=== PATIENT | male | born 1960 | race Caucasian/White ===

== ENCOUNTER 2020-11-03 19:59 | Inpatient (IN) ==
[2020-11-03] MEDS ORDERED: Isovue-370 500 ML BOTTLE IVP ONE (20:19)
[2020-11-03 20:30] LABS: Basophils # 0.1 K/mcL (0.0-0.2); Basophils % 0.7 %; Eosinophils # 0.1 K/mcL (0.0-0.6); Eosinophils % 1.7 %; Hematocrit 18.7 % (37.5-50.1); Hemoglobin 6.6 g/dL (12.9-16.9); Immature Granulocytes % 0.6 % (0-4); Lymphocytes # 1.5 K/mcL (0.6-4.6); Mean Corpuscular HGB Conc 35.3 g/dL (31.6-35.5); Mean Corpuscular Hemoglobin 33.5 pg (28.0-33.3); Mean Corpuscular Volume 94.9 fL (83.0-100.0); Mean Platelet Volume 9.1 fL (9.4-12.4); Monocytes # 0.7 K/mcL (0.0-1.3); Monocytes % 9.7 %; Neutrophils # 4.6 K/mcL (1.6-8.9); Platelet Count 225 K/mcL (140-400); Red Blood Count 1.97 M/mcL (4.19-5.50); Red Cell Distribution Width 12.5 % (11.5-14.5); Segmented Neutrophils % 66.3 %
[2020-11-03] MEDS ORDERED: *HR* Ticagrelor 90 MG TABLET ONE (20:43)
[2020-11-03] MEDS ORDERED: 0.9 % Sodium Chloride 1,000 ML ONE (20:43)
[2020-11-03] MEDS ORDERED: Aspirin 81 MG TAB.CHEW ONE (20:43)
[2020-11-03] MEDS ORDERED: *HR* Heparin 5,000 UNIT/ML VIAL ONE (20:43)
[2020-11-03 20:53] LABS: Alanine Aminotransferase 13 Units/L (7-52); Albumin 3.5 g/dL (3.5-5.7); Albumin/Globulin Ratio 1.7 (1.1-2.2); Alkaline Phosphatase 57 Units/L (34-104); Aspartate Amino Transferase 19 Units/L (13-39); BUN/Creatinine Ratio 34 (6-26); Bilirubin,Direct 0.1 mg/dL (0.0-0.2); Bilirubin,Indirect 0.2 mg/dL (0.0-1.0); Bilirubin,Total 0.3 mg/dL (0.3-1.0); Blood Urea Nitrogen 31 mg/dL (6-20); Calcium 8.5 mg/dL (8.6-10.3); Carbon Dioxide 23 mEq/L (23-29); Chloride 91 mEq/L (98-107); Globulin 2.1 g/dL (2.4-3.5); Glucose 108 mg/dL (70-105); Lipase 24 Units/L (11-82); Osmolality,Calculated 265 (280-300); Potassium 3.6 mEq/L (3.5-5.1); Sodium 124 mEq/L (136-145); Total Protein 5.6 g/dL (6.4-8.9); Troponin I < 0.03 ng/mL (< 0.04); eGFR For African Americans > 60 (> 60); eGFR For Non-African Americans > 60 (> 60)
[2020-11-03] MEDS ORDERED: Pantoprazole 40 MG VIAL IVP STA (21:03)
[2020-11-03] MEDS ORDERED: 0.9 % Sodium Chloride 250 ML ONE (21:05)
[2020-11-03] MEDS ORDERED: Nitroglycerin 1,000 MCG/5 ML VIAL IV ONE (21:12)
[2020-11-03] MEDS ORDERED: *HR* Heparin 10,000 UNIT/10 ML VIAL ONE (21:12)
[2020-11-03] MEDS ORDERED: 0.9 % Sodium Chloride 2,000 ML ONE (21:12)
[2020-11-03] MEDS ORDERED: ISOVUE-370 200 ML INFUS..BTL ONE (21:12)
[2020-11-03] MEDS ORDERED: Heparin 1,000 UNITS/500 mL 0 ML ONE (21:12)
[2020-11-03] MEDS: Pantoprazole 40 MG in 0.9 % Sodium Chloride Mini Bag 100 ML IVC SCH (21:14)
[2020-11-03] MEDS ORDERED: *HR* FentaNYL (PF) 100 MCG/2 ML VIAL IVP ONE ×2 (21:18→22:30)
[2020-11-03 21:59] LABS: INR 1.1; Prothrombin Time 12.2 Seconds (9.4-12.1)
[2020-11-03 22:02] LABS: Activated Partial Thrombo Time 28.4 Seconds (26.0-36.0)
[2020-11-03] MEDS ORDERED: Naloxone 0.4 MG/ML INJ IVP PRN (22:56)
[2020-11-03] MEDS ORDERED: Ondansetron 4 MG/2 ML VIAL IVP PRN (22:56)
[2020-11-03] MEDS ORDERED: Acetaminophen 325 MG TABLET PO PRN (22:56)
[2020-11-03] MEDS ORDERED: Perflutren Lipid Microsphere 1.3 ML in 0.9 % Sodium Chloride 8.7 ML IVP PRN (22:59)
[2020-11-03] MEDS ORDERED: *HR* LORazepam 2 MG/ML VIAL IVP PRN ×3 (23:59)
[2020-11-04] MEDS: Thiamine (B-1) 100 MG, Folic Acid 1 MG, MVI, adult with vitamin K 10 ML in 0.9 % Sodi... IVPB SCH ×2 (01:02→18:02)
[2020-11-04] MEDS: Pantoprazole 40 MG in 0.9 % Sodium Chloride Mini Bag 100 ML IVC SCH ×5 (01:03→22:15)
[2020-11-04 02:24] LABS: Bilirubin,Urine Negative (Negative); Blood,Urine Negative (Negative); Clarity,Urine Clear (Clear); Color,Urine Colorless (Yellow); Glucose,Urine (UA) Normal (Normal); Ketones,Urine Negative (Negative); Leukocyte Esterase,Urine Negative (Negative); Nitrite,Urine Negative (Negative); PH,Urine 6.5 pH Units (5.0-8.0); Protein,Urine Negative (Neg-Trace); Urobilinogen,Urine Normal (Normal)
[2020-11-04 02:34] LABS: Amphetamine Screen,Urine Negative ng/mL (Cutoff=1000); Barbiturate Screen,Urine Negative ng/mL (Cutoff=200); Benzodiazepines Screen,Urine Negative ng/mL (Cutoff=200); Cannabinoid Screen,Urine Negative ng/mL (Cutoff = 50); Cocaine Screen,Urine Negative ng/mL (Cutoff= 300); Opiate Screen,Urine Negative ng/mL (Cutoff=300); Phencyclidine Screen,Urine Negative ng/mL (Cutoff=25)
[2020-11-04 03:58] LABS: Prothrombin Time 11.8 Seconds (9.4-12.1)
[2020-11-04 04:05] LABS: Basophils # 0.1 K/mcL (0.0-0.2); Eosinophils # 0.1 K/mcL (0.0-0.6); Eosinophils % 2.1 %; Hematocrit 27.1 % (37.5-50.1); Immature Granulocytes % 0.8 % (0-4); Lymphocytes # 1.1 K/mcL (0.6-4.6); Lymphocytes % 18.5 %; Mean Corpuscular HGB Conc 34.7 g/dL (31.6-35.5); Mean Corpuscular Hemoglobin 32.8 pg (28.0-33.3); Mean Corpuscular Volume 94.4 fL (83.0-100.0); Mean Platelet Volume 9.3 fL (9.4-12.4); Monocytes # 0.7 K/mcL (0.0-1.3); Monocytes % 11.4 %; Neutrophils # 4.1 K/mcL (1.6-8.9); Platelet Count 189 K/mcL (140-400); Red Blood Count 2.87 M/mcL (4.19-5.50); Red Cell Distribution Width 13.9 % (11.5-14.5); Segmented Neutrophils % 66.2 %; White Blood Count 6.2 K/mcL (4.3-11.1)
[2020-11-04 04:07] LABS: Alanine Aminotransferase 13 Units/L (7-52); Albumin 3.4 g/dL (3.5-5.7); Albumin/Globulin Ratio 1.7 (1.1-2.2); Alkaline Phosphatase 60 Units/L (34-104); Aspartate Amino Transferase 20 Units/L (13-39); BUN/Creatinine Ratio 32 (6-26); Bilirubin,Total 0.8 mg/dL (0.3-1.0); Blood Urea Nitrogen 24 mg/dL (6-20); Carbon Dioxide 23 mEq/L (23-29); Chloride 97 mEq/L (98-107); Chol/HDL Ratio 2.3 (0-4.9); Cholesterol 103 mg/dL (< 200); Glucose 92 mg/dL (70-105); HDL Cholesterol 45 mg/dL (40-59); Hemoglobin 9.4 g/dL (12.9-16.9); LDL Cholesterol,Calculated 41 mg/dL (< 100); Magnesium 1.7 mg/dL (1.6-2.6); Osmolality,Calculated 264 (280-300); Phosphorous 3.4 mg/dL (2.7-4.5); Potassium 4.3 mEq/L (3.5-5.1); Sodium 125 mEq/L (136-145); Total Protein 5.4 g/dL (6.4-8.9); Triglycerides 84 mg/dL (< 150); eGFR For African Americans > 60 (> 60); eGFR For Non-African Americans > 60 (> 60)
[2020-11-04 04:09] LABS: Troponin I 0.21 ng/mL (< 0.04)
[2020-11-04] MEDS ORDERED: Pantoprazole 40 MG VIAL IVP SCH (06:00)
[2020-11-04 14:41] LABS: Hematocrit 28.6 % (37.5-50.1); Hemoglobin 9.9 g/dL (12.9-16.9)
[2020-11-04] MEDS ORDERED: Lidocaine -MPF 2% 2 ML VIAL ONE (16:46)
[2020-11-04] MEDS ORDERED: *HR* Propofol 200 MG/20 ML VIAL IVP ONE (16:46)
[2020-11-04] MEDS ORDERED: *HR* LORazepam 2 MG/ML VIAL IVP PRN ×2 (18:20)
[2020-11-04] MEDS ORDERED: Naloxone 0.4 MG/ML INJ IVP PRN (18:20)
[2020-11-04] MEDS ORDERED: Acetaminophen 325 MG TABLET PO PRN (18:20)
[2020-11-04] MEDS ORDERED: Ondansetron 4 MG/2 ML VIAL IVP PRN (18:20)
[2020-11-04 19:40] LABS: Hematocrit 28.3 % (37.5-50.1); Hemoglobin 9.8 g/dL (12.9-16.9)
[2020-11-04] MEDS: Budesonide/Formoterol 80/4.5 1 PUFF INH IH SCH (20:05)
[2020-11-05 01:16] LABS: Basophils # 0.1 K/mcL (0.0-0.2); Basophils % 1.1 %; Eosinophils # 0.3 K/mcL (0.0-0.6); Eosinophils % 4.9 %; Hematocrit 29.3 % (37.5-50.1); Hemoglobin 10.2 g/dL (12.9-16.9); Immature Granulocytes % 0.5 % (0-4); Lymphocytes % 15.5 %; Mean Corpuscular HGB Conc 34.8 g/dL (31.6-35.5); Mean Corpuscular Hemoglobin 32.8 pg (28.0-33.3); Mean Corpuscular Volume 94.2 fL (83.0-100.0); Mean Platelet Volume 9.1 fL (9.4-12.4); Monocytes # 0.7 K/mcL (0.0-1.3); Monocytes % 10.4 %; Neutrophils # 4.3 K/mcL (1.6-8.9); Platelet Count 234 K/mcL (140-400); Red Blood Count 3.11 M/mcL (4.19-5.50); Red Cell Distribution Width 14.4 % (11.5-14.5); Segmented Neutrophils % 67.6 %; White Blood Count 6.4 K/mcL (4.3-11.1)
[2020-11-05 01:29] LABS: VBG Ionized Calcium 1.12 mmol/L (1.15-1.35)
[2020-11-05 01:37] LABS: Alanine Aminotransferase 15 Units/L (7-52); Albumin 3.6 g/dL (3.5-5.7); Albumin/Globulin Ratio 1.5 (1.1-2.2); Alkaline Phosphatase 57 Units/L (34-104); Aspartate Amino Transferase 27 Units/L (13-39); BUN/Creatinine Ratio 18 (6-26); Bilirubin,Direct 0.1 mg/dL (0.0-0.2); Bilirubin,Indirect 0.4 mg/dL (0.0-1.0); Bilirubin,Total 0.5 mg/dL (0.3-1.0); Blood Urea Nitrogen 12 mg/dL (6-20); Calcium 8.6 mg/dL (8.6-10.3); Carbon Dioxide 22 mEq/L (23-29); Chloride 101 mEq/L (98-107); Globulin 2.4 g/dL (2.4-3.5); Glucose 82 mg/dL (70-105); Magnesium 1.8 mg/dL (1.6-2.6); Osmolality,Calculated 267 (280-300); Potassium 4.5 mEq/L (3.5-5.1); Sodium 129 mEq/L (136-145); eGFR For African Americans > 60 (> 60); eGFR For Non-African Americans > 60 (> 60)
[2020-11-05] MEDS: Pantoprazole 40 MG in 0.9 % Sodium Chloride Mini Bag 100 ML IVC SCH (04:45)
[2020-11-05 07:17] LABS: Hematocrit 30.3 % (37.5-50.1); Hemoglobin 10.2 g/dL (12.9-16.9)
[2020-11-05] MEDS: Budesonide/Formoterol 80/4.5 1 PUFF INH IH SCH ×2 (07:35→19:41)
[2020-11-05] MEDS: *HR* LORazepam 2 MG/ML VIAL IVP PRN ×2 (11:23→19:36)
[2020-11-05] MEDS ORDERED: Aspirin 81 MG TAB.CHEW PO SCH (11:45)
[2020-11-05] MEDS: Aspirin Enteric Coated 81 MG Tablet PO SCH ×2 (12:43→12:54)
[2020-11-05 13:14] LABS: Hematocrit 27.7 % (37.5-50.1); Hemoglobin 9.6 g/dL (12.9-16.9)
[2020-11-05] MEDS ORDERED: Thiamine (B-1) 100 MG, Folic Acid 1 MG, MVI, adult with vitamin K 10 ML in 0.9 % Sodi... IVPB SCH (18:00)
[2020-11-05 19:14] LABS: Hematocrit 27.3 % (37.5-50.1); Hemoglobin 9.5 g/dL (12.9-16.9)
[2020-11-06] MEDS: *HR* LORazepam 2 MG/ML VIAL IVP PRN (02:13)
[2020-11-06 02:23] LABS: Hematocrit 28.4 % (37.5-50.1); Hemoglobin 9.7 g/dL (12.9-16.9); Mean Corpuscular HGB Conc 34.2 g/dL (31.6-35.5); Mean Corpuscular Hemoglobin 32.8 pg (28.0-33.3); Mean Corpuscular Volume 95.9 fL (83.0-100.0); Mean Platelet Volume 9.3 fL (9.4-12.4); Platelet Count 236 K/mcL (140-400); Red Blood Count 2.96 M/mcL (4.19-5.50); Red Cell Distribution Width 14.7 % (11.5-14.5); White Blood Count 6.1 K/mcL (4.3-11.1)
[2020-11-06 02:44] LABS: BUN/Creatinine Ratio 12 (6-26); Blood Urea Nitrogen 8 mg/dL (6-20); Calcium 8.5 mg/dL (8.6-10.3); Carbon Dioxide 25 mEq/L (23-29); Chloride 100 mEq/L (98-107); Glucose 89 mg/dL (70-105); Osmolality,Calculated 266 (280-300); Potassium 4.4 mEq/L (3.5-5.1); Sodium 129 mEq/L (136-145); eGFR For African Americans > 60 (> 60); eGFR For Non-African Americans > 60 (> 60)
[2020-11-06 02:53] LABS: Troponin I 0.26 ng/mL (< 0.04)
[2020-11-06 07:32] VITALS: BP 165/86
[2020-11-06] MEDS: Aspirin Enteric Coated 81 MG Tablet PO SCH (08:17)
[2020-11-06 09:00] LABS: Hematocrit 29.4 % (37.5-50.1); Hemoglobin 10.1 g/dL (12.9-16.9)
[2020-11-06] MEDS ORDERED: hydroCHLOROthiazide 25 MG TABLET PO SCH (09:00)
[2020-11-06] MEDS ORDERED: Isosorbide MONOnitrate (24 HR) 30 MG TAB.ER.24H PO SCH (09:00)
[2020-11-06] MEDS: Budesonide/Formoterol 80/4.5 1 PUFF INH IH SCH (10:37)
== END 2020-11-06 13:56 | disposition home or self-care (01) | DRG 377 ==
LOC: EMEROOARM 19:59 → ICNU 19:59 → OBSVTOIN 22:02 → SUATTDRO 22:02 → ICNU 23:10 → 2ANU 11-04 22:32
PROVIDERS: ADMIT Student in an Organized Health Care Education/Training Program; ATTEND General Practice
PROC: ENDOEBX (2020-11-04 16:00)

== ENCOUNTER 2021-05-11 14:45 | Observation (INO) ==
[2021-05-11] MEDS ORDERED: 0.9 % Sodium Chloride 1,000 ML ONE ×2 (14:48→14:53)
[2021-05-11] MEDS ORDERED: *HR* Ticagrelor 90 MG TABLET ONE (14:53)
[2021-05-11] MEDS ORDERED: *HR* Heparin 5,000 UNIT/ML VIAL ONE (14:53)
[2021-05-11] MEDS ORDERED: *HR* Ticagrelor 90 MG TABLET PO ONE (14:54)
[2021-05-11] MEDS ORDERED: *HR* Heparin 5,000 UNIT/ML VIAL IVP ONE ×2 (14:55→17:48)
[2021-05-11] MEDS ORDERED: 0.9 % Sodium Chloride 500 ML IVC ONE (14:59)
[2021-05-11] MEDS ORDERED: *HR* Labetalol 20 MG/4 ML SYRINGE IVP ONE (15:05)
[2021-05-11] MEDS ORDERED: Isovue-370 500 ML BOTTLE IVP ONE (15:14)
[2021-05-11] MEDS ORDERED: Levalbuterol Neb 1.25 MG/3 ML AER ONE (15:15)
[2021-05-11] MEDS ORDERED: Furosemide 40 MG/4 ML VIAL IVP ONE (15:15)
[2021-05-11 15:18] LABS: Basophils # 0.1 K/mcL (0.0-0.2); Basophils % 0.9 %; Eosinophils # 0.1 K/mcL (0.0-0.6); Hematocrit 38.9 % (37.5-50.1); Hemoglobin 13.5 g/dL (12.9-16.9); Immature Granulocytes % 0.3 % (0-4); Lymphocytes # 1.4 K/mcL (0.6-4.6); Lymphocytes % 22.4 %; Mean Corpuscular HGB Conc 34.7 g/dL (31.6-35.5); Mean Corpuscular Hemoglobin 33.2 pg (28.0-33.3); Mean Corpuscular Volume 95.6 fL (83.0-100.0); Mean Platelet Volume 8.9 fL (9.4-12.4); Monocytes # 0.9 K/mcL (0.0-1.3); Monocytes % 13.8 %; Neutrophils # 3.9 K/mcL (1.6-8.9); Platelet Count 333 K/mcL (140-400); Red Blood Count 4.07 M/mcL (4.19-5.50); Red Cell Distribution Width 11.9 % (11.5-14.5); Segmented Neutrophils % 60.6 %; White Blood Count 6.4 K/mcL (4.3-11.1)
[2021-05-11 15:27] LABS: Prothrombin Time 11.4 Seconds (9.4-12.1)
[2021-05-11 15:30] LABS: Activated Partial Thrombo Time 37.9 Seconds (26.0-36.0)
[2021-05-11 15:39] LABS: Bilirubin,Urine Negative (Negative); Blood,Urine Negative (Negative); Clarity,Urine Clear (Clear); Color,Urine Colorless (Yellow); Glucose,Urine (UA) Normal (Normal); Ketones,Urine Negative (Negative); Leukocyte Esterase,Urine Negative (Negative); Nitrite,Urine Negative (Negative); Protein,Urine Trace mg/dL (Neg-Trace); Specific Gravity,Urine 1.009 (1.010-1.025); Urobilinogen,Urine Normal (Normal)
[2021-05-11 15:50] LABS: BUN/Creatinine Ratio 14 (6-26); Blood Urea Nitrogen 10 mg/dL (6-20); Calcium 9.4 mg/dL (8.6-10.3); Carbon Dioxide 26 mEq/L (23-29); Chloride 85 mEq/L (98-107); Glucose 102 mg/dL (70-105); Lipase 19 Units/L (11-82); Osmolality,Calculated 247 (280-300); Potassium 3.7 mEq/L (3.5-5.1); Sodium 119 mEq/L (136-145); Troponin I < 0.03 ng/mL (< 0.04); eGFR For African Americans > 60 (> 60); eGFR For Non-African Americans > 60 (> 60)
[2021-05-11 16:10] LABS: Amphetamine Screen,Urine Negative ng/mL (Cutoff=1000); Barbiturate Screen,Urine Negative ng/mL (Cutoff=200); Benzodiazepines Screen,Urine Negative ng/mL (Cutoff=200); Cannabinoid Screen,Urine Negative ng/mL (Cutoff = 50); Cocaine Screen,Urine Negative ng/mL (Cutoff= 300); Opiate Screen,Urine Positive ng/mL (Cutoff=300); Phencyclidine Screen,Urine Negative ng/mL (Cutoff=25)
[2021-05-11 16:23] LABS: Ethanol 31 mg/dL (Less than 10)
[2021-05-11 17:23] LABS: Influenza A PCR Negative (Negative); Influenza B PCR Negative (Negative); Resp. Syncytial Virus PCR Negative (Negative)
[2021-05-11 17:24] LABS: SARS-CoV-2 by PCR (In House) Negative (Negative)
[2021-05-11] MEDS ORDERED: Naloxone 0.4 MG/ML INJ IVP PRN (17:42)
[2021-05-11] MEDS ORDERED: *HR* Heparin 5,000 UNIT/ML VIAL IVP PRN ×2 (17:48)
[2021-05-11] MEDS ORDERED: Heparin 25,000UNIT/250ML 1/2NS 25,000 UNIT/250 ML IV.SOLN IVC SCH (18:00)
[2021-05-11] MEDS ORDERED: methylPREDNISolone 125 MG/2 ML VIAL IVP ONE ×2 (18:22→18:46)
[2021-05-11] MEDS ORDERED: Ipratropium/Albuterol Neb 3 ML IH SCH (18:23)
[2021-05-11] MEDS ORDERED: *HR* LORazepam 2 MG/ML VIAL IVP PRN ×3 (18:44)
[2021-05-11] MEDS ORDERED: Levalbuterol Neb 1.25 MG/3 ML IH ONE (18:45)
[2021-05-11] MEDS ORDERED: Thiamine (B-1) 100 MG, Folic Acid 1 MG, MVI, adult with vitamin K 10 ML in 0.9 % Sodi... IVPB SCH (18:55)
[2021-05-11] MEDS ORDERED: Perflutren Lipid Microsphere 1.3 ML in 0.9 % Sodium Chloride 8.7 ML IVP PRN (18:55)
[2021-05-11] MEDS ORDERED: 0.9 % Sodium Chloride 1,000 ML IVC SCH (19:00)
[2021-05-11] MEDS: Levalbuterol Neb 1.25 MG/3 ML IH SCH ×2 (20:12→20:16)
[2021-05-11] MEDS: Ipratropium Neb 0.5 MG NEBULIZER AER SCH (20:12)
[2021-05-11] MEDS: Budesonide/Formoterol 160/4.5 1 PUFF INH IH SCH (20:15)
[2021-05-11] MEDS ORDERED: Acetaminophen IV 500 MG/50 ML BAG IVPB ONE (20:42)
[2021-05-11 21:04] LABS: Sodium 122 mEq/L (136-145)
[2021-05-11 21:11] LABS: Troponin I < 0.03 ng/mL (< 0.04)
[2021-05-12] MEDS: Levalbuterol Neb 1.25 MG/3 ML IH SCH ×5 (00:07→15:45)
[2021-05-12] MEDS: Ipratropium Neb 0.5 MG NEBULIZER AER SCH ×5 (00:07→15:45)
[2021-05-12] MEDS: methylPREDNISolone 125 MG/2 ML VIAL IVP SCH ×3 (00:08→15:36)
[2021-05-12 00:58] LABS: Basophils % 0.2 %; Eosinophils % 0.2 %; Immature Granulocytes % 0.3 % (0-4); Lymphocytes % 10.4 %; Mean Corpuscular HGB Conc 35.8 g/dL (31.6-35.5); Mean Corpuscular Hemoglobin 33.5 pg (28.0-33.3); Mean Corpuscular Volume 93.8 fL (83.0-100.0); Mean Platelet Volume 8.4 fL (9.4-12.4); Monocytes % 10.5 %; Neutrophils # 7.2 K/mcL (1.6-8.9); Platelet Count 292 K/mcL (140-400); Red Blood Count 3.52 M/mcL (4.19-5.50); Red Cell Distribution Width 11.6 % (11.5-14.5); Segmented Neutrophils % 78.4 %; White Blood Count 9.2 K/mcL (4.3-11.1)
[2021-05-12 01:06] LABS: Hemoglobin 11.8 g/dL (12.9-16.9)
[2021-05-12 01:21] LABS: BUN/Creatinine Ratio 16 (6-26); Blood Urea Nitrogen 9 mg/dL (6-20); Calcium 8.5 mg/dL (8.6-10.3); Carbon Dioxide 24 mEq/L (23-29); Chloride 89 mEq/L (98-107); Glucose 103 mg/dL (70-105); Osmolality,Calculated 255 (280-300); Potassium 3.7 mEq/L (3.5-5.1); Sodium 123 mEq/L (136-145); eGFR For African Americans > 60 (> 60); eGFR For Non-African Americans > 60 (> 60)
[2021-05-12 07:16] VITALS: TEMP 98.4
[2021-05-12] MEDS: Budesonide/Formoterol 160/4.5 1 PUFF INH IH SCH (07:18)
[2021-05-12] MEDS ORDERED: D5% in Water 1,000 ML IVC SCH (07:45)
[2021-05-12] MEDS ORDERED: Folic Acid 1 MG TABLET PO SCH (09:00)
[2021-05-12] MEDS ORDERED: Aspirin Enteric Coated 81 MG Tablet PO SCH (09:00)
[2021-05-12 11:13] VITALS: BP 196/90; PULSE 75
[2021-05-12 11:39] VITALS: O2SAT 95
[2021-05-12] MEDS ORDERED: amLODIPine 5 MG TABLET PO SCH (21:00)
== END 2021-05-12 16:45 | disposition home or self-care (01) ==
LOC: EMEROOARM 14:45 → 2NENU 14:45 → SUATTDRO 17:51 → 2NENU 20:02
PROVIDERS: ADMIT Internal Medicine; ATTEND Internal Medicine